=== PATIENT | female | born 1960 | race Caucasian/White ===

== ENCOUNTER 2017-03-16 11:35 | Emergency (ER) | payer BC ==
--- NOTE | 2017-03-16 12:41 | RAD ---
HISTORY: Right calf pain COMPARISONS: None relevant TECHNIQUE: Multiple transverse and longitudinal ultrasound images were obtained of the right lower extremity from the level of the common femoral vein inferiorly through to the infrapopliteal veins using grayscale, color Doppler, and spectral Doppler imaging with and without compression and with augmentation. Comparison images were obtained of the contralateral common femoral vein. FINDINGS: VEINS: The venous system of the right lower extremity is compressible throughout its course, with normal flow on color Doppler imaging and normal response to augmentation on spectral Doppler imaging. SOFT TISSUES: Unremarkable. OTHER FINDINGS: None. IMPRESSION: NO RIGHT LOWER EXTREMITY DEEP VEIN THROMBOSIS
--- NOTE | 2017-03-16 13:16 | RAD ---
HISTORY: Right knee pain, swelling COMPARISONS: None VIEWS: 4, Frontal, lateral, axial, and oblique views of the right knee FINDINGS: BONE DENSITY: Normal. BONES: There is no displaced fracture. JOINTS: There is minimal spurring of the tibial spines. There is minimal joint space narrowing. There is no suprapatellar joint effusion or lipohemarthrosis. ALIGNMENT: There is no dislocation. SOFT TISSUES: Unremarkable. OTHER FINDINGS: None. IMPRESSION: MILD OSTEOARTHRITIS. NO ACUTE OSSEOUS INJURY. IF SYMPTOMS PERSIST, RECOMMEND REPEAT IMAGING.
--- NOTE | 2017-03-16 14:31 | ED ---
Nasim Nicholas Benjamin, scribed for Adalid Andre MD on 03/16/17 at 1230 . Lower Extremity - HPI Summary HPI Summary: 53yo female c/o right calf pain since last Wednesday. Pt first thought she had a bad Prince horse, which pt tried to walk off the pain. Pain seemed to resolve at first, but a few days later, recurred with increasing swelling in right knee. Pt reports calf pain upon bending and twisting her right knee. No heel or ankle pain. Fhx of DVT. - History of Current Complaint Chief Complaint: EDExtremityLower Stated Complaint: RT LEG SWELLING,PAIN Time Seen by Provider: 03/16/17 11:59 Hx Obtained From: Patient Mechanism Of Injury: Unknown - no known trauma Onset of Pain: Days, Prior to Arrival Onset/Duration: Still Present Severity Initially: Moderate Severity Currently: Moderate Pain Intensity: 5 Pain Scale Used: 0-10 Numeric Timing: Constant Location: Is Discrete @ - right calf Associated Signs And Symptoms: Positive: Swelling - right knee Aggravating Factor(s): Standing, Movement Alleviating Factor(s): Rest Able to Bear Weight: No - hurts to walk - Allergies/Home Medications Allergies/Adverse Reactions: Allergies Allergy/AdvReac Type Severity Reaction Status Date / Time No Known Allergies Allergy Verified 03/16/17 11:38 PMH/Surg Hx/FS Hx/Imm Hx Endocrine/Hematology History: Reports: Hx Thyroid Disease Cardiovascular History: Denies: Hx Deep Vein Thrombosis - Cancer History Hx Chemotherapy: No Hx Radiation Therapy: No Infectious Disease History: No Infectious Disease History: Denies: Traveled Outside the [place] in Last 30 Days - Family History Known Family History: Positive: Blood Disorder - DVT, Other - breast CA - Social History Occupation: Employed Full-time Lives: With Family Alcohol Use: Occasionally Substance Use Type: Reports: Prescribed Smoking Status (MU): Former Smoker Review of Systems Constitutional: Negative Eyes: Negative ENT: Negative Cardiovascular: Negative Respiratory: Negative Gastrointestinal: Negative Genitourinary: Negative Positive: Myalgia - right calf pain, Edema - right knee Skin: Negative Neurological: Negative Psychological: Normal All Other Systems Reviewed And Are Negative: Yes Physical Exam Triage Information Reviewed: Yes Vital Signs On Initial Exam: Initial Vitals Temp Pulse Resp BP Pulse Ox 97.8 F 69 16 145/72 97 03/16/17 11:38 03/16/17 11:38 03/16/17 11:38 03/16/17 11:38 03/16/17 11:38 Vital Signs Reviewed: Yes Appearance: Positive: Well-Appearing, No Pain Distress, Well-Nourished Skin: Positive: Warm, Skin Color Reflects Adequate Perfusion, Dry Head/Face: Positive: Normal Head/Face Inspection Eyes: Positive: Normal, EOMI, FLACA ENT: Positive: Normal ENT inspection Neck: Positive: Supple, Nontender Respiratory/Lung Sounds: Positive: Clear to Auscultation, Breath Sounds Present Cardiovascular: Positive: RRR, Pulses are Symmetrical in both Upper and Lower Extremities Abdomen Description: Positive: Nontender, Soft Bowel Sounds: Positive: Present Musculoskeletal: Positive: Strength/ROM Intact - stable to exam., Pain @ - right lower calf tender to palpation. Pain with pranav's, Other - Achilles tendon normal, non-tender. Neurological: Positive: Sensory/Motor Intact, Alert, Oriented to Person Place, Time, CN Intact II-III Psychiatric: Positive: Affect/Mood Appropriate Diagnostics - Vital Signs Vital Signs Temp Pulse Resp BP Pulse Ox 03/16/17 12:04 63 19 93/50 97 03/16/17 12:00 61 16 155/140 97 03/16/17 11:54 59 14 98 03/16/17 11:52 107/49 03/16/17 11:51 97.3 F 59 15 107/49 99 03/16/17 11:38 97.8 F 69 16 145/72 97 - Laboratory Lab Statement: Any lab studies that have been ordered have been reviewed, and results considered in the medical decision making process. - Radiology Knee XR Xray Interpretation: No Acute Changes - IMPRESSION: MILD OSTEOARTHRITIS. NO ACUTE OSSEOUS INJURY. IF SYMPTOMS PERSIST, RECOMMEND REPEAT IMAGING. Radiology Interpretation Completed By: Radiologist - Ultrasound No standard instances Ultrasound Interpretation: No Acute Changes - no right LE DVT Ultrasound Interpretation Completed By: Radiologist Re-Evaluation - Re-Evaluation First Eval Re-Evaluation Time: 14:19 Comment: Discussed lab and imaging results with the pt, as well as pt's course of treatment and disposition. Lower Extremity Course/Dx - Course Course Of Treatment: Reviewed pts medication and allergy lists. DISCUSSED RESULTS WITH PATIENT. SABIHA WRAP TO RT KNEE. ELEVATE WHEN POSSIBLE. IBUPROFEN PRN. F/U WITH PMD WITHIN ONE WEEK TO DETERMINE FURTHER CARE OF THE KNEE AND WHETHER REPEAT RLE DOPPLER IS NEEDED. - Diagnoses Provider Diagnoses: Swelling of knee joint, right, Pain of right calf Discharge - Discharge Plan Condition: Stable Disposition: HOME Prescriptions: Ibuprofen TAB* [Motrin TAB* 800 MG] 800 mg PO TID PRN #20 tab PRN Reason: Pain Patient Education Materials: Swollen Knee Joint (ED), Leg Pain (ED) Referrals: Rober Verduzco MD [Primary Care Provider] - Additional Instructions: FOLLOW UP WITH YOUR DOCTOR WITHIN ONE WEEK. YOU MAY NEED YOUR LEG ULTRASOUND RECHECKED IF YOUR CALF IS WORSE OR NOT IMPROVING; DISCUSS THIS WITH YOUR DOCTOR. RETURN TO THE EMERGENCY DEPARTMENT FOR ANY WORSENING OF YOUR CONDITION OR QUESTIONS OR CONCERNS. The documentation as recorded by the Nasim warren Benjamin accurately reflects the service I personally performed and the decisions made by me, Adalid Andre MD.
[2017-03-16 14:35] VITALS: BP 101/65
== END 2017-03-16 14:43 | disposition home or self-care (01) ==
LOC: ED 11:35
DX: M79.604 Pain in right leg (principal); M25.461 Effusion, right knee; R60.9 Edema, unspecified; Z87.891 Personal history of nicotine dependence
CPT/HCPCS: 99282

== ENCOUNTER 2019-01-15 16:43 | Emergency (ER) | payer BC ==
--- NOTE | 2019-01-15 17:00 | UC ---
Upper Extremity HPI - HPI Summary HPI Summary: Patient is a 58 year old female, who present today to the urgent care with right wrist pain after she fell today at 15:30. She was born washing a deck and while mowing the rug she slipped and landed on her right wrist.. Pain is mainly on the ulnar aspect of the distal ulna. - History of Current Complaint Stated Complaint: RT WRIST Time Seen by Provider: 01/15/19 16:53 Hx Obtained From: Patient ?: No - Allergies/Home Medications Allergies/Adverse Reactions: Allergies Allergy/AdvReac Type Severity Reaction Status Date / Time No Known Allergies Allergy Verified 01/15/19 17:05 Home Medications: Home Medications Eszopiclone [Lunesta] 2 mg PO BEDTIME 01/15/19 [History Confirmed 01/15/19] Levothyroxine TAB* [Synthroid 125 MCG TAB*] 125 mcg PO DAILY 01/15/19 [History Confirmed 01/15/19] PMH/Surg Hx/FS Hx/Imm Hx - Additional Past Medical History Additional PMH: Past Medical History : Hypothyroidism Past Surgical History: None non-contributory Family History : Cancer, Melanoma, Hypercholesterolemia, Hypertension, Diabetes , Stroke, Osteoarthritis. Social History : Occasional alcohol, former smoker, prescribe Vicodin use, last prescription was sent 2014. Previously Healthy: Yes - Surgical History Surgical History: None - Family History Known Family History: Positive: Blood Disorder - DVT, Other - breast CA - Social History Alcohol Use: Occasionally Substance Use Type: Prescribed Smoking Status (MU): Former Smoker Review of Systems All Other Systems Reviewed And Are Negative: Yes Constitutional: Positive: Negative Skin: Positive: Negative Eyes: Positive: Negative ENT: Positive: Negative Respiratory: Positive: Negative Cardiovascular: Positive: Negative Gastrointestinal: Positive: Negative Genitourinary: Positive: Negative Motor: Positive: Negative Neurovascular: Positive: Negative Musculoskeletal: Positive: Arthralgia - Right wrist, Decreased ROM - Right wrist , Edema - Distal ulna Neurological: Positive: Negative Psychological: Positive: Negative Is Patient Immunocompromised?: No Physical Exam - Summary Physical Exam Summary: Physical Exam: Const: Appears well. No signs of apparent distress present. Alert and oriented x 3. Musculo: Walks with a normal gait. Head/Face: Atraumatic, normocephalic on inspection. Eyes: EOMI and PERRLA in both eyes. Normal vision ENT: Hearing normal Respiratory: Respirations are unlabored. Lungs clear to auscultation bilaterally, no wheezing , rhonchi or rales noted . CVS: Regular rate and Rhythm, S1S2 normal , no murmurs identified. Extremities: Peripheral circulation is grossly normal. Pulses 2+ Abdomen : Soft , non tender Skin: No lesions or rash located on the upper extremities or on the lower extremities. Neuro: Cranial nerves II to XII intact, motor and sensory intact. DTR Intact bilaterally. Mood is normal. Affect is normal. Right Wrist: Insp/Palp: Swelling noted on the ulnar aspect of the distal fibula Tenderness to palpation noted on the TFCC area as well as ulnar aspect of the distal ulna . There is tenderness to palpation at the base of the fifth metacarpal .No tenderness over the CMC joint, Anatomical snuff box or triangular fibrocartilage complex. No specific tenderness at the wrist. ROM: Limited and painful range of motion at the wrist Strength: Ordnance Engineering Technician strength is 5/5 Neuro: Sensation intact. 2+ radial pulses bilaterally. Capillary refill <2 seconds to all digits bilaterally. Triage Information Reviewed: Yes Vital Signs Reviewed: Yes Diagnostics - Radiology No standard instances Radiology Interpretation Completed By: Radiologist - X-ray of the right wrist: 1. No radiographically apparent acute fracture or dislocation. 2. Lucent bone lesion in the distal right ulna exhibiting benign radiographic imaging features. Upper Extremity Course/Dx - Course Course Of Treatment: During the visit today, we obtained x-ray of the right wrist:1. No radiographically apparent acute fracture or dislocation. 2. Lucent bone lesion in the distal right ulna exhibiting benign radiographic imaging features. There is a small possible avulsion fracture at the base of the fifth metacarpal and that's where she is tender. Her symptoms are consistent with contusion/ TFCC injury/base of the fifth metacarpal avulsion injury. I applied ulnar gutter splint . Procedure note: I applied the ulnar gutter splint made with Ortho-Glass and used Saad wraps. Patient tolerated the procedure well. Neurovascularly intact status post splint placement. Splint care discussed with the patient. She will follow with orthopedics as soon as possible. We discussed the findings and further plan. Patient expressed understanding . - Differential Dx/Diagnosis Provider Diagnosis: Right wrist pain Discharge - Sign-Out/Discharge Documenting (check all that apply): Patient Departure All imaging exams completed and their final reports reviewed: Yes - Discharge Plan Condition: Stable Disposition: HOME Referrals: Rober Verduzco MD [Primary Care Provider] - Elizabeth Lemon MD [Medical Doctor] - As Soon As Possible Additional Instructions: Please continue using the splint Ibuprofen as needed for pain control Follow up with orthopedics as soon as possible . Return to Urgent care / ER if symptoms get worse. - Billing Disposition and Condition Condition: STABLE Disposition: Home
[2019-01-15 17:04] VITALS: BP 115/46
[2019-01-15] MEDS ORDERED: Naproxen TAB* 250 MG PO ONE (17:29)
== END 2019-01-15 18:18 | disposition home or self-care (01) ==
LOC: UCEAST 16:43
DX: M25.531 Pain in right wrist (principal); E03.9 Hypothyroidism, unspecified; Z87.891 Personal history of nicotine dependence
CPT/HCPCS: 99211; A9270-GY; G0463

== ENCOUNTER 2019-02-18 14:48 | Emergency (ER) | payer BC ==
[2019-02-18] MEDS ORDERED: Ketorolac INJ* 30 MG/ML 1 ML VIAL IV PUSH ONE (15:46)
[2019-02-18] MEDS ORDERED: Metoclopramide IV* 5 MG/ML 2 ML VIAL IV ONE (15:46)
[2019-02-18] MEDS ORDERED: NS 0.9% 1000 ML** 1,000 ML IV ONE (15:46)
[2019-02-18] MEDS ORDERED: diPHENhydraMINE IV* 50 MG/ML 1 ml VIAL (BENADRYL) IV ONE (15:46)
--- NOTE | 2019-02-18 15:49 | ED ---
Headache - HPI Summary HPI Summary: Pt is a 58 y/o F presenting to the ED with a chief complaint of a headache gradually onset 02/14/19. She states she does not often get headaches, and Ibuprofen usually helps, but it does not this time. She rates it at a 9/10, and reports associated nausea, vomiting, and neck pain. She also notes a bug bite that is painful to the touch. - History Of Current Complaint Chief Complaint: EDHeadache Stated Complaint: "HEADACHE/VOMITING PER " Time Seen by Provider: 02/18/19 15:37 Hx Obtained From: Patient Onset/Duration: Gradual Onset, Started days ago, Still Present Initially Headache Was: Moderate Currently Pain Is: Severe Timing: Constant, Days Character: Migraine Location of Headache: Frontal Aggravating Factor: Nothing Allevating Factors: Nothing Associated Signs And Symptoms: Nausea, Vomiting, Neck Pain - Allergies/Home Medications Allergies/Adverse Reactions: Allergies Allergy/AdvReac Type Severity Reaction Status Date / Time No Known Allergies Allergy Verified 02/18/19 14:59 PMH/Surg Hx/FS Hx/Imm Hx Previously Healthy: Yes Endocrine/Hematology History: Reports: Hx Thyroid Disease - hypo Cardiovascular History: Denies: Hx Deep Vein Thrombosis Respiratory History: Denies: Hx Asthma - Cancer History Hx Chemotherapy: No Hx Radiation Therapy: No Infectious Disease History: No Infectious Disease History: Denies: Traveled Outside the [place] in Last 30 Days - Family History Known Family History: Positive: Blood Disorder - DVT, Other - breast CA - Social History Alcohol Use: Occasionally Hx Substance Use: Yes Substance Use Type: Reports: Prescribed Hx Tobacco Use: Yes Smoking Status (MU): Former Smoker Review of Systems Positive: Other - neck pain Positive: Vomiting, Nausea Positive: Other - bug bite Positive: Headache All Other Systems Reviewed And Are Negative: Yes Physical Exam - Summary Physical Exam Summary: Appearance: The patient is well-nourished in no acute distress and in no acute pain. Skin: The skin is warm and dry and skin color reflects adequate perfusion. There is an erythematous area with some light central clearing that is about 5x3cm on the R anterior chest HEENT: The head is normocephalic and atraumatic. The pupils are equal and reactive. The conjunctivae are clear and without drainage. Nares are patent and without drainage. Mouth reveals moist mucous membranes and the throat is without erythema and exudate. The external ears are intact. The ear canals are patent and without drainage. The tympanic membranes are intact. Neck: The neck is supple with full range of motion and non-tender. There are no carotid bruits. There is no neck vein distension. Respiratory: Chest is non-tender. Lungs are clear to auscultation and breath sounds are symmetrical and equal. Cardiovascular: Heart is regular rate and rhythm. There is no murmur or rub auscultated. There is no peripheral edema and pulses are symmetrical and equal. Abdomen: The abdomen is soft and non-tender. There are normal bowel sounds heard in all four quadrants and there is no organomegaly palpated. Musculoskeletal: There is no back tenderness noted. Extremities are non-tender with full range of motion. There is good capillary refill. There is no peripheral edema or calf tenderness elicited. Neurological: Patient is alert and oriented to person, place and time. There are no meningeal signs. The patient has symmetrical motor strength in all four extremities. Cranial nerves are grossly intact. Deep tendon reflexes are symmetrical and equal in all four extremities. Psychiatric: The patient has an appropriate affect and does not exhibit any anxiety or depression. Triage Information Reviewed: Yes Vital Signs On Initial Exam: Initial Vitals Temp Pulse Resp BP Pulse Ox 98.0 F 75 20 113/66 96 02/18/19 14:54 02/18/19 14:54 02/18/19 14:54 02/18/19 14:54 02/18/19 14:54 Vital Signs Reviewed: Yes Diagnostics - Vital Signs Vital Signs Temp Pulse Resp BP Pulse Ox 02/18/19 15:28 111/53 02/18/19 14:54 98.0 F 75 20 113/66 96 - Laboratory Result Diagrams: 02/18/19 15:57 02/18/19 15:57 Lab Statement: Any lab studies that have been ordered have been reviewed, and results considered in the medical decision making process. Headache Course/Dx - Course Course Of Treatment: Ms. Newberry presented with what sounded like a left-sided migraine headache for about a week. She has no history but did have a possible prodrome a couple weeks ago without developing a headache. She improved completely with migraine treatment of IV normal saline, diphenhydramine, ketorolac and metoclopramide. I recommended follow-up with her PCP. - Diagnoses Provider Diagnoses: Migraine headache Discharge - Sign-Out/Discharge Documenting (check all that apply): Patient Departure Patient Received Moderate/Deep Sedation with Procedure: No - Discharge Plan Condition: Stable Disposition: HOME Patient Education Materials: Migraine Headache (ED) Referrals: Rober Verduzco MD [Primary Care Provider] - Additional Instructions: Follow up with Dr. Verduzco in the next 2-3 days. Return to the ED with any new or worsening symptoms. - Billing Disposition and Condition Condition: STABLE Disposition: Home - Attestation Statements Document Initiated by Scribe: Yes Documenting Scribe: Magalie Schafer Provider For Whom Scribe is Documenting (Include Credential): Edwardo Katz MD. Scribe Attestation: Magalie Nicholas scribed for Edwardo Katz MD. on 02/18/19 at 1842. Scribe Documentation Reviewed: Yes Provider Attestation: The documentation as recorded by the [email or web address] accurately reflects the service I personally performed and the decisions made by , Edwardo Katz MD. Status of Scribe Document: Viewed
[2019-02-18 16:07] LABS: ABS Lymphocytes 0.4 10^3/ul (1.0-4.8); ABS Monocytes 0.5 10^3/ul (0-0.8); ABS Neutrophils 4.8 10^3/ul (1.5-7.7); Eosinophil % 0.1 %; Hematocrit 40 % (35-47); Hemoglobin 14.1 g/dL (12.0-16.0); Mean Corpuscular HGB Conc 35 g/dL (31-36); Mean Corpuscular Hemoglobin 30 pg (27-31); Mean Corpuscular Volume 87 fL (80-97); Mean Platelet Volume 7.9 fL (7.4-10.4); Nucleated Red Blood Cells % 0.1; Platelet Count 189 10^3/uL (150-450); Red Blood Count 4.62 10^6 /uL (3.70-4.87); Red Cell Distribution Width 12 % (10-15); White Blood Count 5.7 10^3/uL (3.5-10.8)
[2019-02-18 16:22] LABS: Albumin 3.9 g/dL (3.2-5.2); Albumin/Globulin Ratio 1.4 (1-3); BUN/Creatinine Ratio 20.3 (8-20); C Reactive Protein 38.15 mg/L (<8.01); Calcium 9.1 mg/dL (8.6-10.3); EGFR African American 97.2 (>60); EGFR Non-African American 80.3 (>60); Globulin 2.8 g/dL (2-4); Potassium 4.3 mmol/L (3.5-5.0); Total Bilirubin 0.4 mg/dL (0.2-1.0); Total Protein 6.7 g/dL (6.4-8.9)
[2019-02-18 17:46] VITALS: BP 111/52
== END 2019-02-18 17:47 | disposition home or self-care (01) ==
LOC: ED 14:48
DX: G43.909 Migraine, unspecified, not intractable, without status migrainosus (principal); E03.9 Hypothyroidism, unspecified; Z87.891 Personal history of nicotine dependence
CPT/HCPCS: 36415; 80053; 85025; 86140; 96361; 96374; 96375; 99282; J1200; J1885; J2765